=== PATIENT | female | born 1995 | race Caucasian/White ===

== ENCOUNTER 2018-11-11 08:45 | Emergency (ER) | payer OTHER ==
[2018-11-11 09:01] VITALS: BP 137/81
--- NOTE | 2018-11-11 09:28 | UC ---
Eye Complaint HPI - HPI Summary HPI Summary: 23 yo female presents with itchy eyes yesterday with yellowish drainage. Drainage has improved today but eyes still red, with pain in L eye con under lid. Wears contact lenses, not sure of specific type. Wore them yesterday, not today. No known hx ulcer or similar. Wears eyeliner. No ear pain, sore throat. No cough / uri sx. No visual issues except discomfort as above. No ear pain. No rash. - History of Current Complaint Chief Complaint: UCEye Stated Complaint: EYE COMPLAINT Time Seen by Provider: 11/11/18 09:27 Hx Obtained From: Patient Hx Last Menstrual Period: 10/22/18 Pain Intensity: 0 - Allergies/Home Medications Allergies/Adverse Reactions: Allergies Allergy/AdvReac Type Severity Reaction Status Date / Time No Known Allergies Allergy Verified 11/11/18 08:56 PMH/Surg Hx/FS Hx/Imm Hx Previously Healthy: Yes - Surgical History Surgical History: Yes Surgery Procedure, Year, and Place: 2012 WISDOM TEETH EXTRACTION, OFFICE. tonsillectomy - Social History Alcohol Use: None Substance Use Type: None Smoking Status (MU): Never Smoked Tobacco - Immunization History Vaccination Up to Date: Yes Review of Systems All Other Systems Reviewed And Are Negative: Yes Physical Exam Triage Information Reviewed: Yes Appearance: Well-Appearing, Well-Nourished Vital Signs: Initial Vital Signs Temp 98.2 F 11/11/18 08:57 Pulse 91 11/11/18 08:57 Resp 18 11/11/18 08:57 BP 137/81 11/11/18 08:57 Pulse Ox 100 11/11/18 08:57 Vital Signs Reviewed: Yes Eye Exam: Other Eyes: Positive: Other: - perrla eomi. no overt nystagmus. Lids flipped w/o evidence fb. Both eyes watery L>R. Conj injected L>R. Nondilated fundus ou grossly normal Flourescein - R nad. L abrasion curvilinear medial corneal margin, approx 2mm length. Not c/w ulcer at this time. ENT Exam: Normal ENT: Positive: Pharynx normal, TMs normal Neck exam: Normal Neck: Positive: Supple Respiratory Exam: Normal - RR normal, no tachypnea, no dyspnea Cardiovascular Exam: Normal - HR normal, nondiaphoretic. Abdominal Exam: Normal - grossly benign, sitting up Musculoskeletal Exam: Normal - gait steady, moves x 4 ext's Neurological Exam: Normal - grossly nonfocal. perrla eomi. Psychological Exam: Normal - conversing easily and appropriately Skin Exam: Normal - no visible or reported rash Eye Complaint Course/Dx - Course Course Of Treatment: Reviewed coa / tx plan. Questions as posed answered to the best of my ability. Declines work note. - Differential Dx/Diagnosis Provider Diagnosis: Conjunctivitis, Corneal abrasion Discharge - Sign-Out/Discharge Documenting (check all that apply): Patient Departure All imaging exams completed and their final reports reviewed: No Studies - Discharge Plan Condition: Stable Disposition: HOME Prescriptions: Ciprofloxacin 0.3% OPTH.CHELSI* [Cipro 0.3% Opth*] 2 drop BOTH EYES Q8H #1 btl Patient Education Materials: Corneal Abrasion (ED), Conjunctivitis (ED) Referrals: No Primary Care Phys,NOPCP [Primary Care Provider] - Additional Instructions: Follow up with your eye doctor this week if possible re eye check and contact lens check. Avoid contact lenses for at least 7 days, or when symptoms resolve, whichever is longer. Glasses best in the meantime. Throw out and replace eye makeup. Please seek medical attention for any worse or new problems. - Billing Disposition and Condition Condition: STABLE Disposition: Home
[2018-11-11] MEDS ORDERED: Fluorescein Sodium TOPICAL* 1 MG TEST STRIP OPHTHALMIC ONE (09:34)
[2018-11-11] MEDS ORDERED: Tetracaine 0.5% OPTH.SOL 15ML* BTL ONE (09:35)
[2018-11-11] MEDS ORDERED: Tetracaine 0.5% OPTH.SOL 4 ML* 1 DROP BTL ONE ×2 (09:37→09:42)
== END 2018-11-11 10:05 | disposition home or self-care (01) ==
LOC: UCCORT 08:45
DX: H10.33 Unspecified acute conjunctivitis, bilateral (principal); S05.02XA Injury of conjunctiva and corneal abrasion without foreign body, left eye, initial encounter; X58.XXXA Exposure to other specified factors, initial encounter; Y92.9 Unspecified place or not applicable
CPT/HCPCS: 99212; A9270-GY; G0463